=== PATIENT | male | born 1975 | race Asian ===

== ENCOUNTER 2016-12-30 19:16 | Outpatient (CLI) | payer BC | END 2016-12-30 20:06 | disposition home or self-care (01) | LOC: RAD 19:16 | DX: M54.5 Low back pain (principal) ==

== ENCOUNTER 2017-11-02 09:01 | Outpatient (CLI) | payer OTHER | END 2017-11-02 21:46 | disposition home or self-care (01) | LOC: MRI 09:01 | DX: M54.5 Low back pain (principal) ==